=== PATIENT | male | born 1955 | race Caucasian/White ===

== ENCOUNTER 2021-07-11 06:18 | Day surgery (SDC) | payer MEDICARE ==
[2021-07-07 08:35] VITALS: BMI 34.1
[~2021-07-11 06:18] MED LIST: ACETAMINOPHEN TAB 500 MG TAB PO PRN; DEXAMETHASONE SOD PHOSPHATE 4 MG/ML 1 ML VIAL IV ONE; HEPARIN SODIUM,PORCINE/PF 5,000 UNIT/0.5 ML SYRINGE SQ PRN; HYDROmorphone 0.5 MG/0.5 ML SYRINGE IVP PRN; LACTATED RINGERS 1,000 ML IV SCH; ONDANSETRON 4 MG/2 ML VIAL IVP ONE; Pre Op ABX Message 1 EACH MISC MISCELLANE ONE
[2021-07-11] MEDS ORDERED: LIDOCAINE 1% INJ 10MG/ML (20 ML MDV) ONE ×2 (07:56→11:05)
[2021-07-11] MEDS ORDERED: SUCCINYLCHOLINE CHLORIDE 100 MG/5 ML SYR IV ONE (07:56)
[2021-07-11] MEDS ORDERED: PROPOFOL 10 MG/ML 20 ML VIAL IV ONE ×2 (07:56→11:05)
[2021-07-11] MEDS ORDERED: MIDAZOLAM 2 MG/2 ML VIAL ONE (07:56)
[2021-07-11] MEDS ORDERED: fentaNYL (PF) 50 MCG/ML 2 ML AMP ONE (07:56)
[2021-07-11] MEDS ORDERED: SODIUM CHLORIDE 0.9% 50 ML with ceFAZolin 2,000 MG IV ONE ×2 (08:10)
[2021-07-11] MEDS ORDERED: BUPIVACAIN-EPI 0.25%-1:200,000 30 ML VIAL SQ ONE (08:21)
[2021-07-11] MEDS ORDERED: GELATIN SPONGE,ABSORB (SMALL) 1 EACH SPONGE TOPICAL ONE (08:29)
[2021-07-11 08:49] VITALS: TEMP 97.6
--- NOTE | 2021-07-11 08:53 | P.GSHP ---
History of Present Illness H&P Date: 07/11/21 Chief Complaint: Anal pain, drainage This a 66-year-old male with complaints of chronic anal drainage and pain. Patient has known hemorrhoids. 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 near the anus Past Medical History Past Medical History: Hyperlipidemia, Hypertension History of Any Multi-Drug Resistant Organisms: None Reported Past Surgical History: No Surgical Hx Reported Past Anesthesia/Blood Transfusion Reactions: No Reported Reaction Past Psychological History: No Psychological Hx Reported Smoking Status: Never smoker Past Alcohol Use History: None Reported Past Drug Use History: None Reported Medications and Allergies Home Medications Medication Instructions Recorded Confirmed Type Aspirin [Adult Low Dose Aspirin EC] 81 mg PO DAILY 07/07/21 07/11/21 History Cholecalciferol [Vitamin D3 (25 25 mcg PO DAILY 07/07/21 07/11/21 History Mcg = 1000 Iu)] Fenofibrate 160 mg PO DAILY 07/07/21 07/11/21 History Glucos Sul 2Kcl/MSM/Chond/C/Mn 1 each PO DAILY 07/07/21 07/11/21 History [Glucosamine Chondroitin Cap] Krill Oil 500 mg PO DAILY 07/07/21 07/11/21 History L.acidoph,Paracasei, B.lactis 1 each PO DAILY 07/07/21 07/11/21 History [Probiotic] Magnesium 250 mg PO DAILY 07/07/21 07/11/21 History Multivitamins, Thera [Multivitamin 1 tab PO DAILY 07/07/21 07/11/21 History (formulary)] Nf-Tumeric 1 tab PO DAILY 07/07/21 07/11/21 History Collins-3 Fatty Acids/Fish Oil [Fish 1 each PO DAILY 07/07/21 07/11/21 History Oil 1,000 mg Softgel] Simvastatin 40 mg PO DAILY 07/07/21 07/11/21 History Ubidecarenone [Co Q-10] 100 mg PO DAILY 07/07/21 07/11/21 History amLODIPine BES/OLMESARTAN MED 1 tab PO DAILY 07/07/21 07/11/21 History [amLODIPine BES/OLMESARTAN MED 5-20 mg] Allergies Allergy/AdvReac Type Severity Reaction Status Date / Time No Known Allergies Allergy Verified 07/11/21 06:50 Surgical - Exam Vital Signs Temp Pulse Resp BP Pulse Ox 97.2 F L 83 16 129/78 96 07/11/21 07:03 07/11/21 07:03 07/11/21 07:03 07/11/21 07:03 07/11/21 07:03 - General well developed, well nourished, no distress - Eyes PERRL - ENT normal pinna - Neck no masses - Respiratory normal expansion - Cardiovascular Rhythm: regular - Abdomen Abdomen: soft, non tender - Rectum Internal and external hemorrhoids 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
--- NOTE | 2021-07-11 08:56 | P.OP ---
Date of Procedure: 07/11/21 Preoperative Diagnosis: Perirectal fistula Hemorrhoids Postoperative Diagnosis: Perirectal fistula Hemorrhoids Procedure(s) Performed: Unroofing of perirectal fistula Hemorrhoidectomy Anesthesia: GLADYS Surgeon: Rowdy Weiss Estimated Blood Loss (ml): 5 Pathology: other (Hemorrhoids, perirectal fistula) Condition: stable Disposition: PACU Description of Procedure: The patient's placed on the operative table in supine position. He received general endotracheal tube anesthesia. His then placed in the prone position. His perianal anal area was prepped and draped usual sterile fashion. Patient had a chronic draining sinus on the right perirectal side. This was probed. It appeared to enter the rectum. There was unroofed and then the area was then excised. The wound was inspected for hemostasis. Patient had a large right lateral hemorrhoidal column. The anal retractor placed and anus. Hemorrhoidal column was grasped with a pair of Allis clamps. And then using the Harmonic scissors the hemorrhoid column was excised. The Bovie hemostasis. There is no bleeding seen. The anus packed with Gelfoam. Sterile dressing applied. Patient top she will was sent to recovery room in stable condition.
[2021-07-11] MEDS ORDERED: LACTATED RINGERS 1,000 ML IV ONE (09:14)
[2021-07-11 09:40] VITALS: RESP 20
[2021-07-11 10:07] VITALS: BP 144/86; PULSE 78
== END 2021-07-11 10:25 | disposition home or self-care (01) ==
LOC: OR 06:18
PROVIDERS: ATTEND Surgery
DX: K60.3 Anal fistula (principal); K60.4 Rectal fistula; K64.8 Other hemorrhoids; I10 Essential (primary) hypertension; E78.5 Hyperlipidemia, unspecified; Z87.891 Personal history of nicotine dependence; K21.9 Gastro-esophageal reflux disease without esophagitis; Z79.82 Long term (current) use of aspirin; Z79.899 Other long term (current) drug therapy
CPT/HCPCS: 88304; 46945; 45999; J2250; J1100; J2405; J0690; J2001; J3010; J0330; J2704; J1644